=== PATIENT | female | born 1985 | race Caucasian/White ===

== ENCOUNTER 2022-02-16 18:16 | Emergency (ER) | payer OTHER ==
[2022-02-16 20:06] LABS: HEMOGLOBIN 12.9 gm/dl (12.3-15.3); RED BLOOD COUNT 4.81 M/UL (4.00-5.10); WHITE BLOOD COUNT 16.4 K/UL (4.5-11.0)
[2022-02-16 20:18] LABS: BUN/CREATININE RATIO 15 (0-10)
[2022-02-16] MEDS ORDERED: LYSTEDA650 MG PO (21:33)
== END 2022-02-16 21:40 | disposition home or self-care (01) ==
LOC: ER1 18:16
PROVIDERS: Physician Assistant
DX: N93.8 Other specified abnormal uterine and vaginal bleeding (principal); I10 Essential (primary) hypertension
CPT/HCPCS: 80053; 81001; 84702; 85025; 99284